=== PATIENT | female | born 1970 | race Caucasian/White ===

== ENCOUNTER 2022-03-18 22:48 | Emergency (ER) | payer SELFPAY ==
[~2022-03-18] VITALS: Ht 154.9 cm; Wt 56.7 kg
[2022-03-18 22:54] VITALS: BP 118/68
--- NOTE | 2022-03-18 23:02 | NUR ---
STAT EKG in triage room.
--- NOTE | 2022-03-18 23:05 | NUR ---
Dr. Vogt examining patient.
[2022-03-18 23:07] VITALS: BP 118/68
--- NOTE | 2022-03-18 23:07 | NUR ---
Patient discharged with v/s stable. Written and verbal after care instructions given and explained. Patient verbalized understanding. Ambulatory with steady gait. All questions addressed prior to discharge. Advised to follow up with PMD.
== END 2022-03-18 23:07 | disposition home or self-care (01) ==
LOC: MED 22:48
DX: R07.9 Chest pain, unspecified (principal); F41.9 Anxiety disorder, unspecified
CPT/HCPCS: 99283